=== PATIENT | female | born 1950 | race Caucasian/White ===

== ENCOUNTER → 2017-03-06 16:47 | Outpatient (CLI) | payer MEDICAID ==
[2016-10-01 14:39] VITALS: BMI 30.6
[~2017-03-06 16:47] MED LIST: ACAMPROSATE CA333 MG PO; BUSPAR 15 MG TA15 MG PO; CYMBALTA60 MG PO; FOLIC ACID1 MG PO; INDERAL10 MG PO; L-METHYLFOLATE7.5 MG PO; LIBRIUM25 MG PO; LOPRESSOR25 MG PO; LOTREL 10/20 CA1 CAP PO; LOTREL 5/10 MG1 CAP PO; MULTIPLE VITAMI1 TA1 PO; RESTORIL15 MG PO; SYNTHROID100 MCG PO; SYNTHROID137 MCG PO
== END | disposition home or self-care (01) ==
LOC: D.MAMMO 10:00
DX: N63 Unspecified lump in breast (principal)

== ENCOUNTER → 2017-03-12 08:51 | Outpatient (CLI) | payer MEDICAID ==
[2016-10-01 14:39] VITALS: BMI 30.6
== END | disposition home or self-care (01) ==
LOC: D.US 08:51
DX: R92.8 Other abnormal and inconclusive findings on diagnostic imaging of breast (principal)

== ENCOUNTER 2017-03-20 10:24 | Inpatient (IN) | payer SELFPAY ==
[~2017-03-20] VITALS: Ht 170.2 cm; Wt 75.9 kg
[2017-03-20] VITALS (10 sets, daily range): BP systolic 134–175; BP diastolic 83–101; Ht 170.2 cm; Wt 75.9 kg
[2017-03-20 11:18] LABS: BASOPHILS 0.1 % (0-2); EOSINOPHILS 0 % (0-7); HEMATOCRIT 43.7 % (36.0-48.0); HEMOGLOBIN 14.4 g/dL (12-16); IMMATURE GRANULOCYTES 0.5 % (0-5); LYMPHOCYTES 12.2 % (15-50); MCH 29.6 pg (26.0-34.0); MCV 89.7 fL (80.0-100.0); MEAN PLATELET VOLUME 8.6 fL (7.4-10.4); MONOCYTES 6.5 % (2-11); NEUTROPHILS 80.7 % (40-80); PLATELET COUNT 211 10x3/uL (130-400); RBC 4.87 10x6/uL (4.00-5.40); RDW 13.8 % (11.5-14.5); WBC 7.7 10x3/uL (4.8-10.8)
[2017-03-20 11:27] LABS: APPEARANCE CLEAR (CLEAR); BILIRUBIN NEGATIVE (NEGATIVE); COLOR YELLOW (YELLOW); GLUCOSE NEGATIVE (NEGATIVE); KETONE SMALL mg/dL (NEGATIVE); LEUKOCYTE ESTERASE NEGATIVE (NEGATIVE); NITRITE NEGATIVE (NEGATIVE); PROTEIN TRACE mg/dL (NEGATIVE); SPECIFIC GRAVITY 1.015 (1.005-1.020); UDS - AMPHET NEGATIVE QUAL (NEGATIVE); UDS - BARB NEGATIVE QUAL (NEGATIVE); UDS - BENZO NEGATIVE QUAL (NEGATIVE); UDS - COCAINE NEGATIVE QUAL (NEGATIVE); UDS - METH NEGATIVE QUAL (NEGATIVE); UDS - OPIATE NEGATIVE QUAL (NEGATIVE); UDS - PCP NEGATIVE QUAL (NEGATIVE); UDS - THC NEGATIVE QUAL (NEGATIVE); UROBILINOGEN NORMAL (NORMAL)
[2017-03-20 11:30] LABS: BACTERIA MODERATE /hpf (NONE SEEN); MUCUS <1+ /lpf (NONE SEEN); RED CELLS - URINE 0-5 /hpf (0-5)
[2017-03-20 11:31] LABS: ALBUMIN 3.8 g/dL (3.4-5.0); ANION GAP 25.5 mmol/L (8-16); BILIRUBIN - TOTAL 0.29 mg/dL (0.2-1.3); CALCIUM 7.8 mg/dL (8.5-10.1); CARBON DIOXIDE 13.4 mmol/L (21.0-32.0); CREATININE - SERUM 2.2 mg/dL (0.6-1.3); POTASSIUM - SERUM 3.9 mmol/L (3.5-5.1); PROTEIN - SERUM 7.3 g/dL (6.4-8.2)
[2017-03-20 11:31] LABS: HYALINE CAST OCC /lpf (NONE SEEN)
[2017-03-20 11:49] LABS: ACETAMINOPHEN 147.4 ug/mL (10.0-30.0)
--- NOTE | 2017-03-20 15:07 | NUR ---
CALLED DR. JOHNSTON TO INFORM OF CONSULT, "OKAY TO SEE PT TOMORROW"-PER ORDER. "OKAY."
[2017-03-20 15:19] LABS: MAGNESIUM - SERUM 1.9 mg/dL (1.8-2.4); PHOSPHOROUS 3.7 mg/dL (2.5-4.9)
[2017-03-20 15:21] LABS: HEMOGLOBIN A1C 5.6 % (4.8-6.0)
[2017-03-20 16:09] LABS: INR 1.07 (0.85-1.17); PROTIME 13.8 SECONDS (11.6-15.0)
--- NOTE | 2017-03-20 18:46 | NUR ---
PT FAMILY AT THE BEDSIDE, ALL QUESTIONS ANSWERED, VSS. WILL CONTINUE TO MONITOR PT.
--- NOTE | 2017-03-20 19:00 | NUR ---
REPORT RECEIVED AND ASSESSMENT COMPLETED. SEE FLOWSHEET FOR FULL DETAILS. PT DENIES SUICIDAL IDEATION AT THIS TIME BUT IS ADMITTED FOR INTENTIONAL OVERDOSE. VSS. WILL MONITOR THROUGHOUT SHIFT
--- NOTE | 2017-03-20 21:00 | NUR ---
NO CHANGES IN STATUS AT THIS TIME. VSS. WILL CONTINUE TO MONITOR
--- NOTE | 2017-03-20 23:21 | NUR ---
REASSESSMENT COMPLETED. SEE FLOWSHEET FOR FULL DETAILS. PT B/P WAS ELEVATED SPOKE WITH SUGEY WOLF ORDER RECEIVED FOR HYDRALAZINE 10 MG IV PRN Q6 FOR SYSTOLIC >170. NO OTHER CHANGES AT THIS TIME. WILL CONTINUE TO MONITOR
[2017-03-21] VITALS (24 sets, daily range): BP systolic 118–167; BP diastolic 63–99
--- NOTE | 2017-03-21 01:00 | NUR ---
NO CHANGES IN STATUS AT THIS TIME. VSS. WILL CONTINUE TO MONITOR.
--- NOTE | 2017-03-21 03:00 | NUR ---
REASSESSMENT COMPLETED. SEE FLOWSHEET FOR FULL DETAILS. PT SLEEPING IN ROOM AT THIS TIME. VSS. NO OTHER CHANGES IN STATUS AT THIS TIME. WILL CONTINUE TO MONITOR
[2017-03-21 04:41] LABS: BASOPHILS 0.1 % (0-2); EOSINOPHILS 0.1 % (0-7); HEMATOCRIT 40.9 % (36.0-48.0); IMMATURE GRANULOCYTES 0.2 % (0-5); LYMPHOCYTES 6.5 % (15-50); MCH 29.4 pg (26.0-34.0); MCHC 34.2 g/dL (31.0-37.0); MCV 85.7 fL (80.0-100.0); MONOCYTES 6.9 % (2-11); NEUTROPHILS 86.2 % (40-80); PLATELET COUNT 175 10x3/uL (130-400); RBC 4.77 10x6/uL (4.00-5.40); RDW 13.6 % (11.5-14.5)
[2017-03-21 04:54] LABS: INR 1.27 (0.85-1.17); PROTIME 15.7 SECONDS (11.6-15.0)
[2017-03-21 05:14] LABS: ACETAMINOPHEN 7.5 ug/mL (10.0-30.0); ALBUMIN 3.3 g/dL (3.4-5.0); ANION GAP 16.8 mmol/L (8-16); BILIRUBIN - TOTAL 0.5 mg/dL (0.2-1.3); CREATININE - SERUM 1.8 mg/dL (0.6-1.3); POTASSIUM - SERUM 3.6 mmol/L (3.5-5.1); PROTEIN - SERUM 6.4 g/dL (6.4-8.2)
[2017-03-21 05:16] LABS: CARBON DIOXIDE 20.8 mmol/L (21.0-32.0)
--- NOTE | 2017-03-21 05:42 | NUR ---
PT VOID 500. NO OTHER CHANGES IN STATUS AT THIS TIME. VSS. WILL CONTINUE TO MONITOR
--- NOTE | 2017-03-21 07:00 | NUR ---
PT REPORT REC'D, PT CARE ASSUMED. PT RESTING WITH EYES CLOSED, NO C/O PAIN. VSS. PT DENIES ANY THOUGHTS OF SUICIDE STATES "I'M A BAD PERSON". BEDSIDE COMMODE NEEDED. RIGHT WRIST PIV WITH FLUIDS INFUSING, SEE FLOW SHEET. SHIFT ASSESSMENT COMPLETED, SEE FLOW SHEET. ROOM FREE OF CLUTTER, CALL LIGHT IN REACH, WILL CONTINUE TO MONITOR PT.
--- NOTE | 2017-03-21 07:57 | NUR ---
SPOKE TO CELESTINE GRACE FROM DR. JOHNSTON'S OFFICE AND DR. KABA'S OFFICE TO INFORM OF CONSULT, FAXED FACE SHEET AND ORDER DOWN.
--- NOTE | 2017-03-21 10:01 | NUR ---
[facility]EX PHARMACIST WITH POISON CONTROL CALLING TO CHECK ON PT, INFORMED OF ACETAMINOPHEN LEVEL OF 7.5, "FINISH THE BAG OF MUCOMYST AND IF YOU GUYS NEED ANYTHING ELSE, JUST GIVE US A CALL."
--- NOTE | 2017-03-21 11:00 | NUR ---
PT RESTING WITH EYES CLOSED, NO C/O PAIN, VSS. REASSESSMENT COMPLETED, SEE FLOW SHEET. ROOM FREE OF CLUTTER, CALL LIGHT IN REACH, WILL CONTINUE TO MONITOR PT.
--- NOTE | 2017-03-21 15:00 | NUR ---
PT RESTING WITH EYES CLOSED, NO C/O PAIN, VSS, REASSESSMENT COMPLETED, SEE FLOW SHEET. ROOM FREE OF CLUTTER, CALL LIGHT IN REACH, WILL CONTINUE TO MONITOR PT.
--- NOTE | 2017-03-21 15:15 | NUR ---
PTS FAMILY AT THE BEDSIDE, ALL QUESTIONS ANSWERED, VSS, WILL CONTINUE TO MONITOR PT.
--- NOTE | 2017-03-21 15:30 | NUR ---
Patient Name: SINGH REED Admission Status: ER Accout number: [id number] Admission Date: 03-20-2017 : 1950 Admission Diagnosis:POISONING BY BENZODIAZEPINES, INTENTIONAL SELF-HARM, IN Attending: SHIVA Current LOS: 1 Anticipated DC Date: 03-22-2017 Planned Disposition: Inpatient Psych Facility Primary Insurance: UNINSURED DISCOUNT PLAN Discharge Planning Comments: CM MET WITH PATIENT REGARDING D/C NEEDS AND PLANS. PATIENT STATED SHE LIVES WITH HER BOYFRIEND (ARASH) AND THERE HOME IS SAFE. PATIENT HAS 2 STEPS W/RAILS TO ENTER HOME AND NO STAIRS INSIDE. PATIENT STATED SHE IS INDEPENDENT AT HOME AND HAS NO DME. PATIENT IS STATING SHE NEEDS HELP AND WOULD LIKE TO GO TO [facility] IN PATIENT PSYCH. REFERRAL WILL BE SENT. PATIENT STATED SHE HAS MEDICAID PENDING. CM WILL CONTINUE TO FOLLOW PATIENT WITH D/C NEEDS AND PLANS. PCP [facility] ? ARASH THOMAS FRIEND [phone] [facility] [phone] [place] Operator: Glenda Hathaway Is the patient Alert and Oriented? Yes 0 * How many steps to enter\exit or inside your home? 2 RAILS 0 * PCP DR. THAYER 0 * Preadmission Environment Home with Family 0 * ADLs Independent 0 * List name and contact numbers for known caregivers / representatives who currently or will assist patient after discharge: ARASH THOMAS (BOYFRIEND) [phone] 0 * Community resources currently utilized None 0 * Additional services required to return to the preadmission environment? Yes 0 * Can the patient safely return to the preadmission environment? No 0 * Has this patient been hospitalized within the prior 30 days at any hospital? No 0 Grand Total: 0
--- NOTE | 2017-03-21 15:48 | NUR ---
CM REASSESSMENT NOTE: PATIENT REFERRAL HAS BEEN SENT TO [facility] IN [place]. AWAITING PLACEMENT [phone] [facility]
--- NOTE | 2017-03-21 17:02 | NUR ---
CM REASSESSMENT NOTE: PATIENT HAS BEEN ACCEPTED TO [facility] IN [place] FOR IP PSYCH. DR. GOODMAN WANTS TO KEEP PATIENT ONE MORE DAY AND ICU NURSE CALLED JOSY AT [facility] AND SHE STATED THEY DO NOT HOLD BEDS AND WILL HAVE TO SEE IF ONE AVAILABLE TOMORROW.
--- NOTE | 2017-03-21 20:37 | NUR ---
REPORT RECEIVED AND ASSESSMENT COMPLETED. SEE FLOWSHEET FOR FULL DETAILS. PT RESTING IN ROOM VSS. WILL CONTINUE TO MONITOR THROUGHOUT SHIFT.
--- NOTE | 2017-03-21 21:06 | NUR ---
PRN ATIVAN GIVEN FOR ANXIETY. NO OTHER CHANGES IN STATUS AT THIS TIME. VSS. WILL CONTINUE TO MONITOR.
--- NOTE | 2017-03-21 23:00 | NUR ---
REASSESSMENT COMPLETED. SEE FLOWSHEET FOR FULL DETAILS. VSS. NO OTHER CHANGES IN STATUS AT THIS TIME. WILL CONTINUE TO MONITOR.
[2017-03-22] VITALS (8 sets, daily range): BP systolic 106–153; BP diastolic 50–93
--- NOTE | 2017-03-22 00:50 | NUR ---
NO CHANGES IN STATUS AT THIS TIME. VSS. WILL MONITOR
--- NOTE | 2017-03-22 02:04 | NUR ---
NO CHANGES IN STATUS AT THIS TIME. VSS WILL CONTINUE TO MONITOR
--- NOTE | 2017-03-22 03:00 | NUR ---
REASSESSMENT COMPLETED. SEE FLOWSHEET FOR FULL DETAILS. VSS. WILL CONTINUE TO MONITOR
[2017-03-22 04:23] LABS: BASOPHILS 0.2 % (0-2); EOSINOPHILS 1.1 % (0-7); HEMATOCRIT 38.9 % (36.0-48.0); HEMOGLOBIN 13.2 g/dL (12-16); IMMATURE GRANULOCYTES 0.2 % (0-5); LYMPHOCYTES 22.7 % (15-50); MCH 29.1 pg (26.0-34.0); MCHC 33.9 g/dL (31.0-37.0); MCV 85.9 fL (80.0-100.0); MEAN PLATELET VOLUME 9.2 fL (7.4-10.4); NEUTROPHILS 67.8 % (40-80); PLATELET COUNT 172 10x3/uL (130-400); RBC 4.53 10x6/uL (4.00-5.40); RDW 14.1 % (11.5-14.5)
[2017-03-22 04:25] LABS: WBC 4.4 10x3/uL (4.8-10.8)
[2017-03-22 04:30] LABS: INR 1.08 (0.85-1.17); PROTIME 13.9 SECONDS (11.6-15.0)
[2017-03-22 04:43] LABS: ALBUMIN 3.1 g/dL (3.4-5.0); ANION GAP 15.1 mmol/L (8-16); BILIRUBIN - TOTAL 0.81 mg/dL (0.2-1.3); CALCIUM 9.1 mg/dL (8.5-10.1); CREATININE - SERUM 1.1 mg/dL (0.6-1.3); POTASSIUM - SERUM 3.1 mmol/L (3.5-5.1); PROTEIN - SERUM 5.9 g/dL (6.4-8.2)
--- NOTE | 2017-03-22 05:26 | NUR ---
RESITED PT IV TO LEFT UPPER ARM. NO OTHER CHANGES AT THIS TIME. VSS. WILL MONITOR
--- NOTE | 2017-03-22 07:00 | NUR ---
PT REPORT REC'D, PT CARE ASSUMED. PT AAOX 4 SITTING UP IN BED, NO C/O PAIN, VSS, ROOM AIR. PT DENIES ANY THOUGHTS OF SELF HARM OR SUICIDE. RIGHT WRIST PIV S/L'ED, DRESSING CDI. BEDSIDE COMMODE NEEDED. SHIFT ASSESSMENT COMPLETED, SEE FLOW SHEET. ROOM FREE OF CLUTTER, CALL LIGHT IN REACH, WILL CONTINUE TO MONITOR PT.
--- NOTE | 2017-03-22 08:58 | NUR ---
PT REPORT CALLED TO GEORGES ALEXANDRA RN, PT TO TRANSFER TO [facility]IA [facility]ANCE. PT TO GO TO ROOM 212, DR. LUGO IS THE ADMITTING PHYSICIAN.
--- NOTE | 2017-03-22 09:30 | NUR ---
DC'ED RIGHT WRIST PIV, TIP INTACT, 4X4 APPLIED, BANDAID APPLIED, WILL CONTINUE TO MONITOR PT.
--- NOTE | 2017-03-22 10:27 | NUR ---
EMS HERE TO PICK PT UP FOR TRANSFER TO [facility].
--- NOTE | 2017-03-22 18:05 | DS ---
PATIENT:SINGH REED :[birth year] MEDICAL RECORD: [id number] DISCHARGE SUMMARY ADMISSION DATE: 03/20/17 DISCHARGE DATE: 03/22/17 DATE OF ADMISSION: 03/20/2017 DATE OF DISCHARGE: 03/22/2017 ADMITTING DIAGNOSES: Overdose with Tylenol, alcohol abuse/alcoholism, chronic depression, hypothyroidism, hypertension, metabolic acidosis, hyperglycemia, renal injury. DISCHARGE DIAGNOSES: Tylenol overdose, resolved, with suicide attempt; alcohol abuse; hypertension; hypothyroidism; hypokalemia; acute renal injury, resolved. BRIEF HISTORY AND HOSPITAL COURSE: This is a 66-year-old white female patient of Dr. Joseph, who is admitted after suicide attempt with Tylenol and alcohol, has also tested negative for opiates, methadone, benzos and marijuana, has had multiple hospital admissions for similar problems in the past, has had multiple inpatient psychiatric stays. Tylenol level was elevated. She did receive Mucomyst per protocol and admitted to the ICU. She was seen in consultation by Dr. Meneses. She did have some elevation of her creatinine with subsequent resolution with IV fluids. On the , she has had normalization of her renal function. She is going to be discharged to inpatient psych facility. See MAR for meds at time of transfer. She is medically stable at this time. TRANSINT:[id number] Voice Confirmation ID: [id number] DOCUMENT ID: [id number] KLARISSA GOODMAN DO at 1805 CC: [id number] DICTATION DATE: 03/22/17 0954 GYMNASIUM TEACHER: 03/22/17 1022 DIS IN 03/22/17 [id number] [place] [address]
== END 2017-03-22 10:28 | disposition short-term general hospital (02) | DRG 918 ==
LOC: D.ER 10:24 → D.ICU 13:22
PROVIDERS: Emergency Medicine; ADMIT Family Medicine
DX: T42.4X2A Poisoning by benzodiazepines, intentional self-harm, initial encounter (principal); E87.2 Acidosis; N17.9 Acute kidney failure, unspecified; E87.1 Hypo-osmolality and hyponatremia; F33.9 Major depressive disorder, recurrent, unspecified; T39.1X2A Poisoning by 4-Aminophenol derivatives, intentional self-harm, initial encounter; F41.9 Anxiety disorder, unspecified; R73.9 Hyperglycemia, unspecified; I10 Essential (primary) hypertension; E03.9 Hypothyroidism, unspecified; E87.6 Hypokalemia; Y90.2 Blood alcohol level of 40-59 mg/100 ml; F10.229 Alcohol dependence with intoxication, unspecified

== ENCOUNTER → 2019-05-06 11:00 | Outpatient (CLI) | payer MEDICARE ==
[2017-03-20 14:02] VITALS: BMI 27.1
== END | disposition home or self-care (01) ==
LOC: D.MAMMO 11:00
PROVIDERS: ATTEND Family Medicine
DX: Z12.31 Encounter for screening mammogram for malignant neoplasm of breast (principal)